=== PATIENT | female | born 1945 | race Two or more races ===

== ENCOUNTER 2025-08-30 21:09 | Outpatient (BNV) | payer MEDICARE, MEDICAID, SELFPAY | END 2025-09-05 23:05 | PROVIDERS: Admitting Provider Social Worker; Visit Provider Internal Medicine Cardiovascular Disease | DX: R94.31 Abnormal electrocardiogram [ECG] [EKG] (principal); R07.9 Chest pain, unspecified | CPT/HCPCS: 93010 ==

== ENCOUNTER 2025-08-30 21:09 | Inpatient (IN) | payer MEDICARE, MEDICAID, SELFPAY ==
--- OUTSIDE RECORDS SUMMARY | 2025-08-30 21:12 | XMS_ITS | Clinical Summary ---
Author Organization [facility] Address [address] [place] [address] Care Team Providers Care Liquid Chlorine Operator Name Role Phone Sally Diaz REGULATORY AFFAIRS DIRECTOR Unavailable [phone] Norma Marcus MD Primary Care Provid er Allergies Active Allergy Reactions Criticality Noted Date Comments Iodinated Contrast Media Other (See Comments) 0 07/03/2018 Medications * This document contains information received from the source organization and may not represent a complete record from that organization. anastrozole (ARIMIDEX) 1 mg tablet Take 1 mg by mouth daily. Active enalapril (VASOTEC) 10 MG tablet Take 10 mg by mouth daily. Active furosemide (LASIX) 20 MG tablet Take 20 mg by mouth every morning & every evening. Active levothyroxine (SYNTHROID, LEVOXYL) 50 MCG tablet Take 50 mcg by mouth every morning. Active cyclosporine (RESTASIS OPHT) Apply 1 drop to eye every morning & every evening. Active risperiDONE (RisperDAL) 1 MG tablet Take 1 mg by mouth every morning & every evening. Active cholecalciferol , vitamin D3, (VITAMIN D3) 2,000 unit cap Take by mouth. Active clonazePAM (KlonoPIN) 0.5 MG tablet Take 1 tablet (0.5 mg total) by mouth every morning & every evening. Active multivitamin per tablet Take 1 tablet by mouth daily. Active diphenhydrAMINE (BENADRYL) 50 MG capsule TAKE ONE CAPSULE BY MOUTH 2 HOURS PRIOR TO EXAM Active fluticasone propionate (FLONASE) 50 mcg/actuation nasal spray INSTILL 2 SPRAYS IN EACH NOSTRIL DAILY Active meclizine (ANTIVERT) 12.5 mg tablet TOME DOS TABLETAS BETTINA VECES AL D?A Active PARoxetine (PAXIL) 10 MG tablet Take 1 tablet (10 mg total) by mouth at bedtime. Active peg 400-hypromellos e-glycerin (ARTIFICIAL TEARS) 1-0.2-0.2 % ophthalmic solution INSTILL 1 DROP INTO BOTH EYES EVERY 4 HOURS Active Active Problems Problem Noted Date Diagnosed Date Dizziness 01/04/2020 Edema of larynx 01/04/2020 Gastroesophageal reflux disease without esophagi tis 01/04/2020 Sensorineural hearing loss (SNHL) of both ears 0 01/04/2020 Type 2 diabetes mellitus without complication Immunizations Immunization Administration Dates Next Due Zoster Vaccine Recombinant (Shingrix) 09/11/2018 Social History Tobacco Use Types Packs/Day Years Used Date Smoking Tobacco: Every Day Comments Unknown Sex and Gender Information Value Date Recorded Sex Assigned at Female 11/22/2024 11:28 AM EST Legal Sex Female 6:03 AM EST Gender Identity Female 11/22/2024 11:28 AM EST Sexual Orientation Not on file Last Filed Vital Signs Vital Sign Reading Time Taken Comments Blood Pressure 132/64 07/08/2018 10:29 AM EDT Pulse 74 07/09/2019 9:44 AM EDT Temperature 36.8 C (98.2 F) 07/09/2019 9:44 AM EDT Respiratory Rate 16 07/09/2019 9:44 AM EDT Oxygen Saturation 98% 07/09/2019 9:44 AM EDT Inhaled Oxygen Concentration - - Weight 60.5 kg (133 lb 6.4 oz) 07/09/2019 9:44 A M EDT Height - - Body Mass Index - - Plan of Treatment Health Maintenance Due Date Last Done Comments Blood Pressure 1945 Hemoglobin A1c 1946 Lipid Panel 1945 Urine Microalbumin 1946 Depression Screening 1950 COVID-19 Vaccine (#1) 1951 Diabetic Eye Exam 1964 Hepatitis C Screening 1964 DTaP,Tdap,and Td Vaccines (1 - Tdap) 1965 Pneumococcal Vaccine: 50+ Years (1 of 2 - PCV) 1965 Medicare Initial AWV [id number] 04/24/2008 Osteoporosis Screening 2011 Zoster Vaccine (2 of 2) 11/06/2018 09/11/2018 Influenza Vaccine (#1) 2025 Breast Cancer Screening Discontinued 01/23/20, 01/17/2022 Meningococcal B Vaccines Aged Out No longer eligible based on patient's age to complete this topic Meningococcal Vaccines Aged Out No lo nger eligible based on patient's age to complete this topic Procedures Procedure Name Priority Date/Time Associated Diagnosis Comments MAMMO SCREENING TOMOSYNTHESIS BILATERAL Routine 01/22/2023 12:00 AM EST from Last 3 Months or Most Recently Relevant to Health Maintenance Results * Mammo Screening Tomosynthesis Bilateral (01/22/2023 12:00 AM EST) Anatomical Region Laterality Modality Breast Bilateral Mammography 01/22/2023 01/22/2023 Narrative 01/22/2023 9:54 AM EST [facility] Phys: NORMA MARCUS MD [address] [place] [address] : 1945 Age: 78 Sex: [place] [address] Acct: [id number] Loc: [facility] T[facility]: Exam Date: 01/22/2023 Status: [facility] Unit No: [id number] [facility] Reason For Exam: ROUTINE SCREENING [facility] Ultrasound Exams: [id number] [facility]-MAMM/MAMM SCREENING 2D/3D REASON FOR EXAM: screening, asymptomatic. PATIENT HISTORY: Patient is postmenopausal, has history of other cancer, and is nulliparous. No known family history of cancer. Reductions of both breasts, November 25, 2008. Last mammogram was performed 1 year ago. RISK VALUE (s): Tyrer-Cuzick 10 Year: 4.3%, Tyrer-Cuzick Lifetime: 4.3%, Myriad Table: 1.5%, LULU 5 Year: 2.2%, NCI Lifetime: 4.4% PROCEDURE: Screening Aakash Mammogram: January 22, 2023 - Exam #: [id number] 2D/3D Procedure 3D Bilateral CC and MLO view(s) were taken. 2D Bilateral CC and MLO view(s) were taken. Technologist: ARMIDA Schneider Prior study comparison: January 17, 2022, bilateral screening aakash mammogram performed at [facility]. January 16, 2021, bilateral screening aakash mammogram performed at [facility]. There are scattered areas of fibroglandular density. A small cluster of linear calcifications within the retroareolar region of the right breast are unchanged. There is a smoothly marginated subcutaneous nodule within the retroareolar region of the left breast without significant change. There is no dominant mass or suspicious clustered microcalcifications. ACR BI-RADS Assessments: BI-RADS Category 1 (Negative) RECOMMENDATION: Routine screening mammogram in 1 year. A letter will be sent to the patient stating this recommendation. PAGE 1 Signed Report (CONTINUED) DIAGNOSTIC IMAGING [facility] Phys: NORMA MARCUS MD [address] [place] [address] : 1945 Age: 78 Sex: [place] [address] Acct: [id number] Loc: [facility] T[facility]: Exam Date: 01/22/2023 Status: [facility] Unit No: [id number] [facility] Reason For Exam: [facility] Ultrasound Exams: [id number] [facility]-M[facility]/MAMM SCREENING 2D/3D Continued This patient's information was entered into a reminder system with a target due date for the next mammogram. Electronically Signed: 01/23/2023 1006 Reported By: SCAR SWENSON MD CC: Technologist: KIMBER HUNG Taken Date/Time: 01/22/2023 (0954) Transcribed Date/Time: 01/23/2023 (1014) Websphere Consultant: SASHA Printed Date/Time: 05/14/2024 (4971) PAGE 2 Signed Report Procedure Note Scar Swenson MD - 09/28/2024 DIAGNOSTIC IMAGING REPORT [facility] Phys: NORMA MARCUS MD [address] [place] [address] : 1945 Age: 78 Sex:[place] [address] Acct: [id number] Loc: [facility]: Exam Date: 01/22/2023 Status: [facility] Unit No: [id number] [facility] Reason For Exam: ROUTINE SCREENING [facility] Ultrasound Exams: [id number] [facility]-MAMM/MAMM SCREENING 2D/3D REASON FOR EXAM: screening, asymptomatic. PATIENT HISTORY: Patient is postmenopausal, has history of other cancer, and is nulliparous. No known family history of cancer. Reductions of both breasts, November 25, 2008. Last mammogram was performed 1 year ago. RISK VALUE (s): Tyrer-Cuzick 10 Year: 4.3%, Tyrer-Cuzick Lifetime: 4.3%, Myriad Table: 1.5%, LULU 5 Year: 2.2%, NCI Lifetime: 4.4% PROCEDURE: Screening Aakash Mammogram: January 22, 2023 - Exam #: [id number] 2D/3D Procedure 3D Bilateral CC and MLO view(s) were taken. 2D Bilateral CC and MLO view(s) were taken. Technologist: ARMIDA Schneider Prior study comparison: January 17, 2022, bilateral screening aakash mammogram performed at [facility]. January 16, 2021, bilateral screening aakash mammogram performed at [facility]. There are scattered areas of fibroglandular density. A small cluster of linear calcifications within the retroareolar region of the right breast are unchanged. There is a smoothly marginated subcutaneous nodule within the retroareolar region of the left breast without significant change. There is no dominant mass or suspicious clustered microcalcifications. ACR BI-RADS Assessments: BI-RADS Category 1 (Negative) RECOMMENDATION: Routine screening mammogram in 1 year. A letter will be sent to the patient stating this recommendation. PAGE 1 Signed Report (CONTINUED) DIAGNOSTIC IMAGING REPORT [facility]: [facility] Phys: NORMA MARCUS MD [address] [place] [address] : 1945 Age: 78 Sex:[place] [address] Acct: [id number] Loc: [facility] TEL: Exam Date: 01/22/2023 Status: [facility] Unit No: [id number] [facility] Reason For Exam: ROUTINE SCREENING [facility] Ultrasound Exams: [id number] [facility]-MAMM/MAMM SCREENING 2D/3D Continued This patient's information was entered into a reminder system with a target due date for the next mammogram. 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
--- OUTSIDE RECORDS SUMMARY | 2025-08-30 21:12 | XMS_ITS | Patient Health Record ---
Author Organization [facility] Address [address] [address] Care Team Providers Care Asphalt Paving Machine Operator Name Role Phone Lidia PARKER, Nicole Primary Care Provide Marco De La Rosa Unavailable [phone] Allergies Allergen (clinical drug ingredient) Drug/Non Drug Allergy documented on EMR Reaction Allergy Type Onset Date Status IVP Dye Unknown Drug Allergy Active Reason For Referral No Information Medications Medication SIG (Take, Route, Frequency, Duration) Notes Start Date End Date Status Enalapril Maleate 10 MG 1 tablet Orally Once a day Active RisperDAL 2 MG 1 tablet Orally Once a day Active Levothyroxine Sodium 50 MCG 1 tablet on an empty stomach in the morning Orally Once a day Active Arimidex 1 MG 1 tablet Orally Once a day Active Furosemide 20 MG 1 tablet Orally Once a day Active Medical Compression Stockings - Active Vitamin D (Cholecalciferol) 1000 UNIT 1 capsule Orally Once a day Active Flonase 50 MCG/ACT 1 spray in each nost ril Nasally Once a day Active clonazePAM 0.5 MG 1 tablet at bedtime Orally Once a day Active Social History Tobacco Use: Social History Observation Description Date Details (start date - stop date) Never Smoker NA - NA Tobacco Use Question Answer Notes Do you smoke? 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 Edema; lower extremities 2. Diabetes Mellitus 3. Uterine Cancer; s/p radiation treatme nt 2010 4. Hypetension 5. Hypercholesterolemia 6. Hypothyroidism 7. Iron Deficiency 8. Cholelithiasis 9. Cellulitis; right lower leg 10. Bunion; right foot 11. Glaucoma; s/p surgery 12. Carpal Tunnel; s/p bilateral surgery 13. Non Smoker
--- OUTSIDE RECORDS SUMMARY | 2025-08-30 21:12 | XMS_ITS | Encounter Summary ---
Author Organization [facility] Address [address] [place] [address] Care Team Providers Care Application Packager Name Role Phone Carlos Nicole Primary Care Provider [phone] Sally Diaz PACKAGE CHECKER Unavailable [phone] Norma Cornejo MD Primary Care Provid er Reason for Visit * Reason Onset Date Comments No Show 07/11/2020 Encounter Details Date Type Department Care Team (Late st Contact Info) Description 07/11/2020 Telephone [place] [facility] [address] [place] [address] [phone] Sally Diaz, GAYLE [address] [place] [address] No Show Social History Tobacco Use Types Packs/Day Years Used Date Smoking Tobacco: Every Day Comments Unknown Sex and Gender Information Value Date Recorded Sex Assigned at Female 11/22/2024 11:28 AM EST Legal Sex Female 6:03 AM EST Gender Identity Female 11/22/2024 11:28 AM EST Sexual Orientation Not on file documented as of this encounter Miscellaneous Notes * Telephone Encounter - Imani Anderson - 08/30/2020 3:51 PM EDT Tried calling patient, could not leave a message. Will send letter. * Telephone Encounter - Imani Anderson - 07/26/2020 8:53 AM EDT Left another messsage on patients voice mail to call me back to schedule appt. * Telephone Encounter - Imani Anderson - 07/13/2020 10:06 AM EDT Left a message on patients voice mail to call me back to reschedule. * Telephone Encounter - Jacqueline Clark RN - 07/11/2020 11:47 AM EDT Imani, could you call her to reschedule? Thanks. * Telephone Encounter - Bronwyn Perez - 07/11/2020 11:28 AM EDT Patient no show, please call to reschedule. documented in this encounter Plan of Treatment Not on file documented as of this encounter Visit Diagnoses Not on filedocumented in this encounter Care Teams Application Packager Relationship Specialty Start Date End Date Nicole Gonzalez [address] [place] [address] PCP - General 12/30/17 01/21/23 Norma Cornejo MD [address] [place] [address] PCP - General 01/22/23 Sally Diaz NP [address] [place] [address] Nurse Practitioner Nurse Practitioner 07/08/18 documented as of this encounter
--- OUTSIDE RECORDS SUMMARY | 2025-08-30 21:12 | XMS_ITS | Clinical Summary ---
Author Organization [facility] Address [address] [place] [address] Phone Care Team Providers Care Automatic Fabric Cutter Name Role Phone Nicole Gonzalez MD Primary Care Provider [phone] Social History Tobacco Use Types Packs/Day Years Used Date Smoking Tobacco: Former Education Answer Date Recorded Are you interested in more education? Not on yesy e 03/21/2023 Are you concerned about learning? Not on file 03/21/2023 No 03/21/2023 No 03/21/2023 Digital Access Answer Date Recorded No 04/21/2023 No 04/21/2023 No 04/21/2023 Reliable internet access at home? Not on file 04/21/2023 Device with a working camera? Not on file Comments Unknown Sex and Gender Information Value Date Recorded Sex Assigned at Not on file Legal Sex Female 12:53 PM EDT Gender Identity Not on file Sexual Orientation Not on file Plan of Treatment Not on file Medical Devices Not on file Insurance [place] [id number] MEDICARE PART A [place] [address] MED[place] [address] MEDICARE PART [place] PART A & B [facility] [place] A [place] [id number] Care Teams Automatic Fabric Cutter Relationship Specialty Start Date End Date Nicole Gonzalez MD [address] [place] [address] [email or web address] PCP - General Family Medicine 05/29/16 Additional Source Comments The information contained in this document represents components of the legal health record. It is not the complete legal health record.[facility]
[2025-08-30 21:25] VITALS: BMI 30.8
[2025-08-30 23:59] VITALS: BP 125/61; PULSE 67; RESP 16; TEMP 36.4; O2SAT 96
[2025-08-31] VITALS: BMI 26.3
--- NOTE | 2025-08-31 04:30 | PC.ADMIT ---
Chasity is a 80 year old female admitted to [facility] from [facility] who presented from a Dementia memory care unit DT increased agitation and delirium. She arrived on the unit at 2130, skin/contraband search completed by 2 staff, skin intact with noted multiple upper extremity bruises, 2+ edema to bilateral lower extremities, incontinent care provided, noted with external hemorrhoids, gait unsteady. Chasity presented as alert, confused, impulsive, exit seeking, difficult to redirect, understood basic Dominican to make needs known. Medical DX include: HTN, hyperlipidemia, hypothyroidism, uterine carcinoma post hysterectomy. Dr. Machado completed admission, meds given for increased agitation whole in applesauce without problems, placed on 1:1 for safety while awake and 5 min observation while asleep. Hospitalist updated on admit. Chasity was calm and went to bed @ 2200 hrs. Plan of care goal: Psychiatric stabilization and return to Dementia Memory Care unit @ SN[facility].
[2025-08-31 08:00] VITALS: BP 138/63; PULSE 53; RESP 16; TEMP 36.4; O2SAT 96
[2025-08-31 08:01] LABS: Hemoglobin A1C 115.2829 umol/L; Total Hemoglobin (HGBA1C) 3021.9481 umol/L
--- NOTE | 2025-08-31 08:16 | HO.PM.IMCN ---
History of Present Illness Data of Consult Service Date: 08/31/25 Primary Care Provider: Unknown Physician HPI Reason for consult: Medical consult 80-year-old female brought in by ambulance from a [facility] facility where she has resided since February 2023. Patient has a past medical history of dementia, lymphedema, hypertension, hyperlipidemia, hypothyroidism, history of uterine carcinoma status post hysterectomy. And show presentation her lab work revealed no leukocytosis, stable H&H, platelet count within normal limits, electrolytes at baseline. And acute kidney injury with a creatinine of 1.0, liver function tests at baseline. Urine was negative for any infection. Nursing reports 2 loose stools today. On exam she is ambulatory, speaks very little. Cooperative with care. Ambulating with a steady gait. Presence of lymphedema on bilateral lower extremities. Review of Systems Review of Systems: Limited due to cognition PMFSH Social History Household Members: Other Household Members Other:: lives @ [facility] Housing: Assisted Living Facility Do you presently have visiting nurse or other home services: No (lives in a facility) Comment: Patient on one to one Patient Tobacco Use Status: Never used Tobacco Smoked in Last 30 Days: No e-Cigarette/Vaping Use: Never Used Patient Interested in Nicotine Replacement: No Patient Given Instructions on How to Stop Smoking: No Currently Displaying Signs/Symptoms of Drug Intoxication Withdrawal: No Have you been hit, kicked, punched, or otherwise hurt by someone within the past year? If so, by whom?: No Do you feel safe in your current relationship?: No Current Relationship Is there a partner from a previous relationship who is making you feel unsafe now?: No Are you made to feel afraid or neglected: No Advance Directives: No Advance Directives Information Provided: No Do you have thoughts of harming others: None Do you have a plan to hurt others: No Plan Recently lost weight without trying: No Eating poorly because of decreased appetite: No Nutrition Risks: No Nutritional Risk Patient : No : No Poor oral hygiene: No Meds Allergies Allergy/AdvReac Type Severity Reaction Status Date / Time No Known Allergies Allergy Verified 08/30/25 21:24 Active Medications: Current Medications Acetaminophen (Acetaminophen 325 Mg Tablet) 650 mg PO Q6H PRN PRN Reason: Headache/Pain, Scale 1-10 Al Hydroxide/Mg Hydroxide (Magnesium Hydrox/Alum Hydrox 30 Ml Oral.Susp) 30 ml PO Q6H PRN PRN Reason: Heartburn/Nausea Bisacodyl (Bisacodyl 10 Mg Supp.Rect) 10 mg [place] DAILY PRN PRN Reason: Congestion Brexpiprazole (Brexpiprazole 1 Mg Tablet) 1 mg PO DAILY [facility] [place] Enalapril Maleate (Enalapril Maleate 10 Mg Tablet) 10 mg PO DAILY [facility]; Protocol Ferrous Sulfate (Ferrous Sulfate 324 Mg Tablet.Dr) 324 mg PO DAILY [facility] [place] Hydroxyzine HCl (Hydroxyzine Hcl 25 Mg Tablet) 25 mg PO Q6H PRN PRN Reason: mild anxiety Levothyroxine Sodium (Levothyroxine Sodium 50 Mcg Tablet) 50 mcg PO DAILY@0600 [facility] [place] Last Admin: 08/31/25 06:37 Dose: 50 mcg Loratadine (Loratadine 10 Mg Tablet) 10 mg PO DAILY PRN PRN Reason: Allergic Symptoms Magnesium Hydroxide (Milk Of Magnesia 30 Ml Oral.Susp) 30 ml PO DAILY PRN PRN Reason: Constipation Nicotine (Nicotine 21 Mg Patch.Td24) 21 mg TRANSDERMA DAILY PRN PRN Reason: nicotine craving Nicotine Polacrilex (Nicotine Polacrilex 2 Mg Gum) 2 mg BUCCAL Q2H PRN PRN Reason: Nicotine Cravings Olanzapine (Olanzapine 5 Mg Tablet) 5 mg PO BID PRN PRN Reason: Agitation Olanzapine (Olanzapine 5 Mg Tablet) 5 mg PO BEDTIME [facility] Olanzapine (Olanzapine 5 Mg Tablet) 5 mg PO DAILY [facility] Sumatriptan Succinate (Sumatriptan Succinate 25 Mg Tablet) 25 mg PO BID PRN PRN Reason: Headache Trazodone HCl (Trazodone Hcl 50 Mg Tablet) 50 mg PO BEDTIME MRX1 PRN PRN Reason: Insomnia Vitamin D (Cholecalciferol (Vitamin D3) 25 Mcg Tablet) 25 mcg PO DAILY [facility] [place] Home Medications ?Medication ?Instructions ?Recorded ?Confirmed ?Last Taken ?Type bisacodyl 10 mg rectal suppository 10 mg [place] DAILY PRN Congestion 08/30/25 08/30/25 Unknown History brexpiprazole 1 mg tablet (Rexulti) 1 mg PO DAILY 08/30/25 08/30/25 Unknown History cholecalciferol (vitamin D3) 25 25 mcg PO DAILY 08/30/25 08/30/25 Unknown History mcg (1,000 unit) tablet (Vitamin D3) enalapril maleate 10 mg tablet 10 mg PO DAILY 08/30/25 08/30/25 Unknown History ferrous sulfate 325 mg (65 mg 325 mg PO DAILY 08/30/25 08/30/25 Unknown History iron) tablet (Iron (ferrous sulfate)) levothyroxine 50 mcg tablet 50 mcg PO DAILY 08/30/25 08/30/25 Unknown History loratadine 10 mg tablet 10 mg PO DAILY PRN Allergic 08/30/25 08/30/25 Unknown History Symptoms olanzapine 5 mg disintegrating 5 mg PO BEDTIME 08/30/25 08/30/25 Unknown History tablet olanzapine 5 mg disintegrating 5 mg PO BID PRN Agitation 08/30/25 08/30/25 Unknown History tablet olanzapine 5 mg disintegrating 5 mg PO DAILY 08/30/25 08/30/25 Unknown History tablet olanzapine 5 mg tablet 5 mg PO BEDTIME 08/30/25 08/30/25 Unknown History sumatriptan succinate 25 mg tablet 25 mg PO BID PRN Headache 08/30/25 08/30/25 Unknown History trazodone 50 mg tablet 50 mg PO BID PRN Agitation 08/30/25 08/30/25 Unknown History Physical Exam Vital Signs and Narrative: Vital Signs: Last Vital Signs Temp 97.6 F 08/30/25 23:59 Pulse 67 08/30/25 23:59 Resp 16 08/30/25 23:59 BP 125/61 08/30/25 23:59 Pulse Ox 96 08/30/25 23:59 O2 Del Method Room Air 08/30/25 23:59 BMI result Body Mass Index 26.3 CONST: Alert and oriented, in NAD. Well nourished HEENT: Normocephalic, atraumatic, MMM, Eyes clear, Neck supple RESP: Lungs clear, RRR even and regular HEART:,RRR, S1, S2. Positive lymphedema bilateral lower legs. GI:Abdomen Soft NT, ND. + BS times four :Deferred SKIN: Warm dry and intact, multiple bruising to bilateral upper arms. NEURO:CN II-XII Intact bilaterally, Sensation intact. Speech clear PSYCH: Normal affect Results Labs 08/31/25 07:19 Labs: Laboratory Results - last 24 hr 08/31/25 07:19 Estimat Average Glucose 114 Hemoglobin A1c % 5.6 Assessment and Plan (1) HTN (hypertension): Status: Acute Plan 80-year-old female admitted from receiving facility after she presented from an area fdc with altered mental status. She is admitted here for further care. Dementia with behavioral disturbance Treatment per psychiatric team Hypertension/HLD Continue enalapril Lipid panel within normal limits Not on a statin Hypothyroidism Continue Synthroid TSH within normal limits Iron deficiency anemia Continue iron Diarrhea Check stool studies and stool for C diff. Patient from fdc, possibly community-acquired Imodium x1 Thank you for allowing me to participate in the care of this patient. Will follow as needed, please notify medical provider with any changes in condition or concerns.
[2025-08-31 08:20] LABS: Alanine Aminotransferase 28 U/L (0-31); Albumin Level 3.5 g/dL (3.5-5.0); Alkaline Phosphatase 114 U/L (39-117); Anion Gap 13 (12-20); Aspartate Amino Transferase 42 U/L (5-31); Blood Urea Nitrogen 22 mg/dL (9-16); Calcium 9.2 mg/dL (8.4-10.2); Carbon Dioxide 22 mmol/L (22-29); Chloride 109 mmol/L (96-108); Cholesterol 175 mg/dL (<200); Creatinine Clr Calc Pharmacy 46.7; Estimated Glomerular Filt Rate > 60; HDL Cholesterol 70 mg/dL (>40); Potassium 4.3 mmol/L (3.3-5.1); Sodium 140 mmol/L (135-145); Total Protein 7.2 g/dL (6.5-8.0); Triglycerides 100 mg/dL (<150)
[2025-08-31 08:27] LABS: Free T4 (Free Thyroxine) 1.00 ng/dL (0.71-1.85); Thyroid Stimulating Hormone 3.15 uIU/mL (0.32-4.0)
[2025-08-31 08:44] LABS: Folate 12.9 ng/mL (> or = 4.0); Vitamin B12 703 pg/mL (200-900)
[2025-08-31] MEDS: Ferrous Sulfate 324 MG TABLET.DR PO (09:03)
--- NOTE | 2025-08-31 13:04 | P.HPPS_ITS ---
HPI Date of Service: 08/31/25 Chief Complaint: AMS Sources of Information: patient interviewed, chart reviewed and crisis/core team assessment reviewed HPI Subjective Notes: Section 12B Healthcare Proxy: Yes (invoked attempted to call daughter, unable to leave VM) Narrative: Ms. Angel is a 80 year-old woman with hx of advanced dementia who resides at memory care unit at [place]. Pt was sent to [facility] ED due to increase combative behaviors. In the ED pertinent labs completed include: CBC mostly unremarkable, no leukocytosis nor anemia. CMP without electrolyte abnormalities, BUN 29, Cr 1.01, creatinine clearance 56, Alk phos elevated at 139. UA not suggestive of UTI, unremarkable. Pt apparently was agitated at [facility], mostly at night. She was seen by their psychiatric team, risperidone was discontinued and pt was started on olanzapine and rexulti. On the unit, pt presents as cooperative and friendly. She is not oriented to situation, month, year nor place. She reports having a VILLAN[place]VA. She also reports her legs are swollen causing some difficulty walking. She also asks this typewriter assembly and parts inspector if she can leave now to go home. This typewriter assembly and parts inspector called daughter Martha Angel ([phone]) unable to speak with her nor leave a message. Past Psychiatric History: unknown Medical Evaluation Reviewed: Yes [facility] Family History: unknown Social History: Pt reports originally from [place]. She reports she has 5 children. Substance History: unknown Trauma History: unknown, none reported. Diagnostics Vital Signs (24Hr): Vital Signs - 24 hr 08/30/25 23:59 08/31/25 08:00 Temperature 97.6 F 97.5 F Pulse Rate 67 53 Respiratory Rate 16 16 Blood Pressure 125/61 138/63 Pulse Oximetry 96 96 Oxygen Delivery Method Room Air Room Air BMI result Body Mass Index 26.3 Labs 08/31/25 07:19 Labs: Laboratory Results - last 48 hr 08/31/25 07:19 Sodium 140 Potassium 4.3 Chloride 109 H Carbon Dioxide 22 Anion Gap 13 BUN 22 H Creatinine 0.90 Estim Creat Clear Calc 46.7 Estimated GFR > 60 Random Glucose 82 Estimat Average Glucose 114 Hemoglobin A1c % 5.6 Calcium 9.2 Total Bilirubin 0.4 AST 42 H ALT 28 Alkaline Phosphatase 114 Total Protein 7.2 Albumin 3.5 Triglycerides 100 Cholesterol 175 LDL Cholesterol, Calc 85 HDL Cholesterol 70 Vitamin B12 703 Folate 12.9 TSH 3.15 Free T4 1.00 Meds/Allergies Meds Home Medications ?Medication ?Instructions ?Recorded ?Confirmed ?Type bisacodyl 10 mg rectal suppository 10 mg [place] DAILY PRN Congestion 08/30/25 08/30/25 History brexpiprazole 1 mg tablet (Rexulti) 1 mg PO DAILY 06/1708/30/25 History cholecalciferol (vitamin D3) 25 25 mcg PO DAILY 08/30/25 History mcg (1,000 unit) tablet (Vitamin D3) enalapril maleate 10 mg tablet 10 mg PO DAILY 08/30/25 08/30/25 History ferrous sulfate 325 mg (65 mg 325 mg PO DAILY 08/30/25 08/30/25 History iron) tablet (Iron (ferrous sulfate)) levothyroxine 50 mcg tablet 50 mcg PO DAILY 08/30/25 1 History loratadine 10 mg tablet 10 mg PO DAILY PRN Allergic 08/30/25 08/30/25 History Symptoms olanzapine 5 mg disintegrating 5 mg PO BEDTIME 2 5 08/30/25 History tablet olanzapine 5 mg disintegrating 5 mg PO BID PRN Agitati on 08/30/25 08/30/25 History tablet olanzapine 5 mg disintegrating 5 mg PO DAILY 08/30/25 08/30/25 History tablet olanzapine 5 mg tablet 5 mg PO BEDTIME 08/30/2506/17 History sumatriptan succinate 25 mg tablet 25 mg PO BID PRN He adache 08/30/25 08/30/25 History trazodone 50 mg tablet 50 mg PO BID PRN Agitation 1 08/30/25 History Allergies Allergies Allergy/AdvReac Type Severity Reaction Status Date / Time No Known Allergies Allergy Verified 08/30/25 21:24 Mental Status Exam Mental Status Exam Narrative: Appearance: wearing hospital gown, fair hygiene, in NAD Behavior: cooperative and friendly Psychomotor: no agitation or retardation noted Speech: mostly clear, normal rate/rhythm/volume, spontaneous TP: linear TC: complaining of headache, wanting to go home Mood: good Affect: congruent SI: denies HI: none VH/AH: no overt signs Delusions: confabulation, no overt delusional content. Insight/judgment: impaired x 2 Memory/cog: alert, oriented only to self. Assessment & Plan Assessment & Plan (1) Major neurocognitive disorder due to another medical condition, with other behavioral or psychological disturbance: Status: Acute Code(s): F02.818 - Dementia in other diseases classified elsewhere, unspecified severity, with other behavioral disturbance Plan Mrs. Angel is a 80 year-old woman with hx of dementia who resides at [place], apparently she had been presenting as more agitated and combative. No acute medical findings. She was seen by psych and started on rexulti and olanzapine. PLAN 1. Admit to S1, Sect 12b. There's copy of HCP which it is invoked. She is also DNR/DNI. 2. continue current medications 3. obtain collateral information 4. aftercare planning. Patient educated on: diagnosis and medication risk/benefits Reason for continued inpatient stay Substantial Risk for: harm to others and inability to function Statement Statement: I have reviewed the history and physical and performed a pertinent examination on my patient. No changes have occurred unless specified. If the History and Physical was not performed prior to admission, the Hospitalist's service will be consulted for completing the admission physical. Time Spent With Patient Time: Total time managing care of this patient today ____ minutes.
[2025-08-31 20:00] VITALS: BP 129/59; PULSE 67; RESP 18; TEMP 36.3; O2SAT 96
[2025-09-01 08:00] VITALS: BP 135/64; PULSE 79; RESP 16; TEMP 36.8; O2SAT 95
[2025-09-01] MEDS: Ferrous Sulfate 324 MG TABLET.DR PO (08:49)
--- NOTE | 2025-09-01 10:06 | PC.NURSE ---
Patient reported 10/10 pain from heachache after taking Sumatriptan; vital signs stable. In addition patient has bilateral lower extremity edema with +1 pitting on the right and non-pitting on the left. All of the above reported to the provider.
[2025-09-01 13:41] VITALS: BMI 26.1
--- NOTE | 2025-09-01 14:09 | PC.NURSE ---
Spoke with RN from [facility], reported that the patient has not received her flu vaccine yet.
[2025-09-01] MEDS: Flu Vacc TS2025-26(6mo up)/PF 0.5 ML SYRINGE IM (14:34)
--- NOTE | 2025-09-01 17:33 | P.PNPSI_ITS ---
Subjective Subjective Date of Service: 09/01/25 Reason For Visit: AMS Subjective Notes: Conditional Voluntary Healthcare Proxy: Yes Interim History: Pt slept through the night. Pt presents as pleasant and cooperative. she reports headache, received sumatriptan. She also tells this policy writer they haven't come to pick me up! No aggression. taking medications. not oriented to place, month nor situation. Review of Systems Review of Systems Limited due to cognition Mental Status Exam Mental Status Exam Narrative: Appearance: wearing hospital gown, fair hygiene, in NAD Behavior: cooperative and friendly Psychomotor: no agitation or retardation noted Speech: mostly clear, normal rate/rhythm/volume, spontaneous TP: linear TC: complaining of headache, wanting to go home Mood: good Affect: congruent SI: denies HI: none VH/AH: no overt signs Delusions: confabulation, no overt delusional content. Insight/judgment: impaired x 2 Memory/cog: alert, oriented only to self. Diagnostics Vital Signs (24Hr): Vital Signs - 24 hr 08/31/25 20:00 09/01/25 08:00 Temperature 97.3 F 98.2 F Pulse Rate 67 79 Respiratory Rate 18 16 Blood Pressure 129/59 L 135/64 Pulse Oximetry 96 95 Oxygen Delivery Method Room Air Room Air BMI result Body Mass Index 26.1 Labs 08/31/25 07:19 Labs: Laboratory Results - last 48 hr 08/31/25 07:19 Sodium 140 Potassium 4.3 Chloride 109 H Carbon Dioxide 22 Anion Gap 13 BUN 22 H Creatinine 0.90 Estim Creat Clear Calc 46.7 Estimated GFR > 60 Random Glucose 82 Estimat Average Glucose 114 Hemoglobin A1c % 5.6 Calcium 9.2 Total Bilirubin 0.4 AST 42 H ALT 28 Alkaline Phosphatase 114 Total Protein 7.2 Albumin 3.5 Triglycerides 100 Cholesterol 175 LDL Cholesterol, Calc 85 HDL Cholesterol 70 Vitamin B12 703 Folate 12.9 TSH 3.15 Free T4 1.00 Medications Medications Current Medications Acetaminophen (Acetaminophen 325 Mg Tablet) 650 mg PO Q6H PRN PRN Reason: Headache/Pain, Scale 1-10 Last Admin: 09/01/25 12:47 Dose: 650 mg Al Hydroxide/Mg Hydroxide (Magnesium Hydrox/Alum Hydrox 30 Ml Oral.Susp) 30 ml PO Q6H PRN PRN Reason: Heartburn/Nausea Bisacodyl (Bisacodyl 10 Mg Supp.Rect) 10 mg [place] DAILY PRN PRN Reason: Congestion Brexpiprazole (Brexpiprazole 1 Mg Tablet) 1 mg PO DAILY [facility] Last Admin: 09/01/25 08:49 Dose: 1 mg Enalapril Maleate (Enalapril Maleate 10 Mg Tablet) 10 mg PO DAILY [facility]; Protocol Last Admin: 09/01/25 08:48 Dose: 10 mg Ferrous Sulfate (Ferrous Sulfate 324 Mg Tablet.Dr) 324 mg PO DAILY [facility] Last Admin: 09/01/25 08:49 Dose: 324 mg Hydroxyzine HCl (Hydroxyzine Hcl 25 Mg Tablet) 25 mg PO Q6H PRN PRN Reason: mild anxiety Last Admin: 08/31/25 14:37 Dose: 25 mg Levothyroxine Sodium (Levothyroxine Sodium 50 Mcg Tablet) 50 mcg PO DAILY@0600 [facility] Last Admin: 09/01/25 06:00 Dose: 50 mcg Loperamide HCl (Loperamide Hcl 2 Mg Capsule) 2 mg PO Q6H PRN PRN Reason: Loose Stool Loratadine (Loratadine 10 Mg Tablet) 10 mg PO DAILY PRN PRN Reason: Allergic Symptoms Magnesium Hydroxide (Milk Of Magnesia 30 Ml Oral.Susp) 30 ml PO DAILY PRN PRN Reason: Constipation Nicotine (Nicotine 21 Mg Patch.Td24) 21 mg TRANSDERMA DAILY PRN PRN Reason: nicotine craving Nicotine Polacrilex (Nicotine Polacrilex 2 Mg Gum) 2 mg BUCCAL Q2H PRN PRN Reason: Nicotine Cravings Olanzapine (Olanzapine 5 Mg Tablet) 5 mg PO BID PRN PRN Reason: Agitation Last Admin: 09/01/25 15:37 Dose: 5 mg Olanzapine (Olanzapine 5 Mg Tablet) 5 mg PO BEDTIME [facility] Last Admin: 08/31/25 20:48 Dose: 5 mg Olanzapine (Olanzapine 5 Mg Tablet) 5 mg PO DAILY [facility] Last Admin: 09/01/25 08:49 Dose: 5 mg Sumatriptan Succinate (Sumatriptan Succinate 25 Mg Tablet) 25 mg PO BID PRN PRN Reason: Headache Last Admin: 09/01/25 06:09 Dose: 25 mg Trazodone HCl (Trazodone Hcl 50 Mg Tablet) 50 mg PO BEDTIME MRX1 PRN PRN Reason: Insomnia Vitamin D (Cholecalciferol (Vitamin D3) 25 Mcg Tablet) 25 mcg PO DAILY [facility] Last Admin: 09/01/25 08:49 Dose: 25 mcg Allergies Allergies Allergy/AdvReac Type Severity Reaction Status Date / Time No Known Allergies Allergy Verified 08/30/25 21:24 Assessment & Plan Assessment & Plan (1) Major neurocognitive disorder due to another medical condition, with other behavioral or psychological disturbance: Status: Acute Code(s): F02.818 - Dementia in other diseases classified elsewhere, unspecified severity, with other behavioral disturbance Plan Mrs. Angel is a 80 year-old woman with hx of dementia who resides at [place], apparently she had been presenting as more agitated and combative. No acute medical findings. She was seen by psych and started on rexulti and olanzapine. PLAN 09/01 continue tx. no aggression. Reason for continued inpatient stay Substantial Risk for: inability to function Time Spent With Patient Time: Total time managing care of this patient today ____ minutes.
[2025-09-01 20:00] VITALS: BP 128/68; PULSE 75; RESP 16; TEMP 36.6; O2SAT 94
[2025-09-02 08:00] VITALS: BP 144/65; PULSE 82; RESP 14; TEMP 36.4; O2SAT 96
[2025-09-02] MEDS: Ferrous Sulfate 324 MG TABLET.DR PO (09:31)
--- NOTE | 2025-09-02 09:36 | HO.PSYCHPN ---
Subjective Subjective Date of Service: 09/02/25 Reason For Visit: AMS Subjective Notes: Conditional Voluntary Healthcare Proxy: Yes Interim History: Pt sleeping through the night. not oriented to place, month nor situation. Calmer in the AM, although reports physically not feeling well. She reports she has a migraine. She reports her legs hurt- has bilat edema-seen by hospitalist. getting more confused in the evening, suspicious about staff. worry her family did not come to pick her up. Review of Systems Review of Systems Limited due to cognition Mental Status Exam Mental Status Exam Narrative: Appearance: wearing hospital gown, fair hygiene, in NAD Behavior: cooperative and friendly Psychomotor: no agitation or retardation noted Speech: mostly clear, normal rate/rhythm/volume, spontaneous TP: linear TC: complaining of headache, wanting to go home Mood: good Affect: congruent SI: denies HI: none VH/AH: no overt signs Delusions: confabulation, no overt delusional content. Insight/judgment: impaired x 2 Memory/cog: alert, oriented only to self. Diagnostics Vital Signs (24Hr): Vital Signs - 24 hr 09/01/25 20:00 Temperature 98 F Pulse Rate 75 Respiratory Rate 16 Blood Pressure 128/68 Pulse Oximetry 94 Oxygen Delivery Method Room Air BMI result Body Mass Index 26.1 Labs 08/31/25 07:19 Medications Medications Current Medications Acetaminophen (Acetaminophen 325 Mg Tablet) 650 mg PO Q6H PRN PRN Reason: Headache/Pain, Scale 1-10 Last Admin: 09/01/25 23:13 Dose: 650 mg Al Hydroxide/Mg Hydroxide (Magnesium Hydrox/Alum Hydrox 30 Ml Oral.Susp) 30 ml PO Q6H PRN PRN Reason: Heartburn/Nausea Bisacodyl (Bisacodyl 10 Mg Supp.Rect) 10 mg [place] DAILY PRN PRN Reason: Congestion Brexpiprazole (Brexpiprazole 1 Mg Tablet) 1 mg PO DAILY [facility] Last Admin: 09/02/25 09:31 Dose: 1 mg Enalapril Maleate (Enalapril Maleate 10 Mg Tablet) 10 mg PO DAILY [facility]; Protocol Last Admin: 09/02/25 09:31 Dose: 10 mg Ferrous Sulfate (Ferrous Sulfate 324 Mg Tablet.) 324 mg PO DAILY [facility] Last Admin: 09/02/25 09:31 Dose: 324 mg Hydroxyzine HCl (Hydroxyzine Hcl 25 Mg Tablet) 25 mg PO Q6H PRN PRN Reason: mild anxiety Last Admin: 09/01/25 20:18 Dose: 25 mg Levothyroxine Sodium (Levothyroxine Sodium 50 Mcg Tablet) 50 mcg PO DAILY@0600 [facility] Last Admin: 09/02/25 06:15 Dose: 50 mcg Loperamide HCl (Loperamide Hcl 2 Mg Capsule) 2 mg PO Q6H PRN PRN Reason: Loose Stool Loratadine (Loratadine 10 Mg Tablet) 10 mg PO DAILY PRN PRN Reason: Allergic Symptoms Magnesium Hydroxide (Milk Of Magnesia 30 Ml Oral.Susp) 30 ml PO DAILY PRN PRN Reason: Constipation Nicotine (Nicotine 21 Mg Patch.Td24) 21 mg TRANSDERMA DAILY PRN PRN Reason: nicotine craving Nicotine Polacrilex (Nicotine Polacrilex 2 Mg Gum) 2 mg BUCCAL Q2H PRN PRN Reason: Nicotine Cravings Olanzapine (Olanzapine 5 Mg Tablet) 5 mg PO BID PRN PRN Reason: Agitation Last Admin: 09/01/25 15:37 Dose: 5 mg Olanzapine (Olanzapine 5 Mg Tablet) 5 mg PO BEDTIME [facility] Last Admin: 09/01/25 20:18 Dose: 5 mg Olanzapine (Olanzapine 5 Mg Tablet) 5 mg PO DAILY [facility] Last Admin: 09/02/25 09:32 Dose: 5 mg Sumatriptan Succinate (Sumatriptan Succinate 25 Mg Tablet) 25 mg PO BID PRN PRN Reason: Headache Last Admin: 09/02/25 00:05 Dose: 25 mg Trazodone HCl (Trazodone Hcl 50 Mg Tablet) 50 mg PO BEDTIME MRX1 PRN PRN Reason: Insomnia Last Admin: 09/01/25 23:13 Dose: 50 mg Vitamin D (Cholecalciferol (Vitamin D3) 25 Mcg Tablet) 25 mcg PO DAILY [facility] Last Admin: 09/02/25 09:32 Dose: 25 mcg Allergies Allergies Allergy/AdvReac Type Severity Reaction Status Date / Time No Known Allergies Allergy Verified 08/30/25 21:24 Assessment & Plan Assessment & Plan (1) Major neurocognitive disorder due to another medical condition, with other behavioral or psychological disturbance: Status: Acute Code(s): F02.818 - Dementia in other diseases classified elsewhere, unspecified severity, with other behavioral disturbance Plan Mrs. Angel is a 80 year-old woman with hx of dementia who resides at [place], apparently she had been presenting as more agitated and combative. No acute medical findings. She was seen by psych and started on rexulti and olanzapine. PLAN 09/01 continue tx. no aggression. 09/02 continue tx. Reason for continued inpatient stay Substantial Risk for: inability to function Time Spent With Patient Time: Total time managing care of this patient today ____ minutes.
[2025-09-02 20:00] VITALS: BP 133/60; PULSE 73; RESP 16; TEMP 36.4; O2SAT 98
[2025-09-03 09:22] VITALS: BP 123/58; PULSE 72; RESP 14; TEMP 36.3; O2SAT 95
[2025-09-03] MEDS: Ferrous Sulfate 324 MG TABLET.DR PO (09:32)
--- NOTE | 2025-09-03 13:17 | P.PNPSI_ITS ---
Subjective Subjective Date of Service: 09/03/25 Reason For Visit: AMS Subjective Notes: Conditional Voluntary Interim History: Patient was seen and discussed in rounds today. Records and plans were reviewed. She continues to be on 1-1. Her legs are quite swollen with pitting edema especially on the left side. I will put her on Lasix and some stockings. Eating adequately. No other changes were made Review of Systems Review of Systems Edema Yes all other systems are reviewed and are negative Mental Status Exam Mental Status Exam Narrative: In today's visit she was seen with an language interpreter. She is alert, pleasant and interactive. Normal speech. Moderate to good eye contact. No signs of psychosis. No SI. No AVH. Judgment could not be assessed Diagnostics Vital Signs (24Hr): Vital Signs - 24 hr 09/02/25 20:00 09/03/25 09:22 Temperature 97.6 F 97.3 F Pulse Rate 73 72 Respiratory Rate 16 14 Blood Pressure 133/60 123/58 L Pulse Oximetry 98 95 Oxygen Delivery Method Room Air Room Air BMI result Body Mass Index 26.1 Labs 08/31/25 07:19 Medications Medications Current Medications Acetaminophen (Acetaminophen 325 Mg Tablet) 650 mg PO Q6H PRN PRN Reason: Headache/Pain, Scale 1-10 Last Admin: 09/03/25 09:32 Dose: 650 mg Al Hydroxide/Mg Hydroxide (Magnesium Hydrox/Alum Hydrox 30 Ml Oral.Susp) 30 ml PO Q6H PRN PRN Reason: Heartburn/Nausea Bisacodyl (Bisacodyl 10 Mg Supp.Rect) 10 mg [place] DAILY PRN PRN Reason: Constipation Brexpiprazole (Brexpiprazole 1 Mg Tablet) 1 mg PO DAILY [facility] Last Admin: 09/03/25 09:32 Dose: 1 mg Enalapril Maleate (Enalapril Maleate 10 Mg Tablet) 10 mg PO DAILY [facility]; Protocol Last Admin: 09/03/25 09:33 Dose: 10 mg Ferrous Sulfate (Ferrous Sulfate 324 Mg Tablet.) 324 mg PO DAILY [facility] Last Admin: 09/03/25 09:32 Dose: 324 mg Hydroxyzine HCl (Hydroxyzine Hcl 25 Mg Tablet) 25 mg PO Q6H PRN PRN Reason: mild anxiety Last Admin: 09/02/25 15:46 Dose: 25 mg Levothyroxine Sodium (Levothyroxine Sodium 50 Mcg Tablet) 50 mcg PO DAILY@0600 [facility] Last Admin: 09/03/25 06:22 Dose: 50 mcg Loperamide HCl (Loperamide Hcl 2 Mg Capsule) 2 mg PO Q6H PRN PRN Reason: Loose Stool Loratadine (Loratadine 10 Mg Tablet) 10 mg PO DAILY PRN PRN Reason: Allergic Symptoms Magnesium Hydroxide (Milk Of Magnesia 30 Ml Oral.Susp) 30 ml PO DAILY PRN PRN Reason: Constipation Nicotine (Nicotine 21 Mg Patch.Td24) 21 mg TRANSDER[place] DAILY PRN PRN Reason: nicotine craving Olanzapine (Olanzapine 5 Mg Tablet) 5 mg PO BID PRN PRN Reason: Agitation Last Admin: 09/02/25 15:46 Dose: 5 mg Olanzapine (Olanzapine 5 Mg Tablet) 5 mg PO BEDTIME [facility] Last Admin: 09/02/25 21:10 Dose: 5 mg Olanzapine (Olanzapine 5 Mg Tablet) 5 mg PO DAILY [facility] Last Admin: 09/03/25 09:32 Dose: 5 mg Sumatriptan Succinate (Sumatriptan Succinate 25 Mg Tablet) 25 mg PO BID PRN PRN Reason: Headache Last Admin: 09/02/25 16:29 Dose: 25 mg Trazodone HCl (Trazodone Hcl 50 Mg Tablet) 50 mg PO BEDTIME MRX1 PRN PRN Reason: Insomnia Last Admin: 09/02/25 21:09 Dose: 50 mg Vitamin D (Cholecalciferol (Vitamin D3) 25 Mcg Tablet) 25 mcg PO DAILY [facility] Last Admin: 09/03/25 09:32 Dose: 25 mcg Allergies Allergies Allergy/AdvReac Type Severity Reaction Status Date / Time No Known Allergies Allergy Verified 08/30/25 21:24 Assessment & Plan Assessment & Plan (1) Major neurocognitive disorder due to another medical condition, with other behavioral or psychological disturbance: Status: Acute Code(s): F02.818 - Dementia in other diseases classified elsewhere, unspecified severity, with other behavioral disturbance Plan Mrs. Angel is a 80 year-old woman with hx of dementia who resides at [place], apparently she had been presenting as more agitated and combative. No acute medical findings. She was seen by psych and started on rexulti and olanzapine. PLAN 09/01 continue tx. no aggression. 09/02 continue tx. 09/03: Continue current regimen and plans Patient educated on: medication risk/benefits Reason for continued inpatient stay Substantial Risk for: med/psych decompensation Time Spent With Patient Time: Total time managing care of this patient today ____ minutes.
[2025-09-03 14:23] VITALS: BP 140/60
[2025-09-03 20:00] VITALS: BP 138/70; PULSE 77; RESP 16; TEMP 36.3; O2SAT 97
[2025-09-04 09:03] VITALS: BP 125/58; PULSE 73; RESP 14; TEMP 36.8; O2SAT 91
[2025-09-04] MEDS: Ferrous Sulfate 324 MG TABLET.DR PO (09:08)
--- NOTE | 2025-09-04 12:38 | P.PNPSI_ITS ---
Subjective Subjective Date of Service: 09/04/25 Reason For Visit: AMS Subjective Notes: Conditional Voluntary Interim History: Patient was seen and discussed in rounds today. Records and plans were reviewed. She is very preoccupied about going home and has been calling her sister [place] about going home. She was dysregulated yesterday, confused. The Zyprexa p.r.n. has been helpful. No changes were made today Review of Systems Review of Systems Yes Unobtainable due to mental status Mental Status Exam Mental Status Exam Narrative: In today's visit she was seen with an manager neonatal. She is alert, pleasant and interactive. Normal speech. Moderate to good eye contact. No signs of psychosis. No SI. No AVH. Judgment could not be assessed Diagnostics Vital Signs (24Hr): Vital Signs - 24 hr 09/03/25 14:23 09/03/25 20:00 09/04/25 09:03 Temperature 97.4 F 98.2 F Pulse Rate 77 73 Respiratory Rate 16 14 Blood Pressure 140/60 H 138/70 125/58 L Pulse Oximetry 97 91 L Oxygen Delivery Method Room Air Room Air BMI result Body Mass Index 26.1 Labs 08/31/25 07:19 Medications Medications Current Medications Acetaminophen (Acetaminophen 325 Mg Tablet) 650 mg PO Q6H PRN PRN Reason: Headache/Pain, Scale 1-10 Last Admin: 09/04/25 05:24 Dose: 650 mg Al Hydroxide/Mg Hydroxide (Magnesium Hydrox/Alum Hydrox 30 Ml Oral.Susp) 30 ml PO Q6H PRN PRN Reason: Heartburn/Nausea Bisacodyl (Bisacodyl 10 Mg Supp.Rect) 10 mg [place] DAILY PRN PRN Reason: Constipation Brexpiprazole (Brexpiprazole 1 Mg Tablet) 1 mg PO DAILY [facility] Last Admin: 09/04/25 09:08 Dose: 1 mg Enalapril Maleate (Enalapril Maleate 10 Mg Tablet) 10 mg PO DAILY [facility]; Protocol Last Admin: 09/04/25 09:08 Dose: 10 mg Ferrous Sulfate (Ferrous Sulfate 324 Mg Tablet.) 324 mg PO DAILY [facility] Last Admin: 09/04/25 09:08 Dose: 324 mg Furosemide (Furosemide 20 Mg Tablet) 20 mg PO DAILY [facility]; Protocol Last Admin: 09/04/25 09:08 Dose: 20 mg Hydroxyzine HCl (Hydroxyzine Hcl 25 Mg Tablet) 25 mg PO Q6H PRN PRN Reason: mild anxiety Last Admin: 09/04/25 09:08 Dose: 25 mg Levothyroxine Sodium (Levothyroxine Sodium 50 Mcg Tablet) 50 mcg PO DAILY@0600 [facility] Last Admin: 09/04/25 06:11 Dose: 50 mcg Loperamide HCl (Loperamide Hcl 2 Mg Capsule) 2 mg PO Q6H PRN PRN Reason: Loose Stool Loratadine (Loratadine 10 Mg Tablet) 10 mg PO DAILY PRN PRN Reason: Allergic Symptoms Magnesium Hydroxide (Milk Of Magnesia 30 Ml Oral.Susp) 30 ml PO DAILY PRN PRN Reason: Constipation Nicotine (Nicotine 21 Mg Patch.Td24) 21 mg TRANSDERMA DAILY PRN PRN Reason: nicotine craving Olanzapine (Olanzapine 5 Mg Tablet) 5 mg PO BID PRN PRN Reason: Agitation Last Admin: 09/03/25 14:23 Dose: 5 mg Olanzapine (Olanzapine 5 Mg Tablet) 5 mg PO BEDTIME [facility] Last Admin: 09/03/25 21:52 Dose: 5 mg Olanzapine (Olanzapine 5 Mg Tablet) 5 mg PO DAILY [facility] Last Admin: 09/04/25 09:08 Dose: 5 mg Sumatriptan Succinate (Sumatriptan Succinate 25 Mg Tablet) 25 mg PO BID PRN PRN Reason: Headache Last Admin: 09/03/25 21:52 Dose: 25 mg Trazodone HCl (Trazodone Hcl 50 Mg Tablet) 50 mg PO BEDTIME MRX1 PRN PRN Reason: Insomnia Last Admin: 09/03/25 21:52 Dose: 50 mg Vitamin D (Cholecalciferol (Vitamin D3) 25 Mcg Tablet) 25 mcg PO DAILY [facility] Last Admin: 09/04/25 09:08 Dose: 25 mcg Allergies Allergies Allergy/AdvReac Type Severity Reaction Status Date / Time No Known Allergies Allergy Verified 08/30/25 21:24 Assessment & Plan Assessment & Plan (1) Major neurocognitive disorder due to another medical condition, with other behavioral or psychological disturbance: Status: Acute Code(s): F02.818 - Dementia in other diseases classified elsewhere, unspecified severity, with other behavioral disturbance Plan Mrs. Angel is a 80 year-old woman with hx of dementia who resides at [place], apparently she had been presenting as more agitated and combative. No acute medical findings. She was seen by psych and started on rexulti and olanzapine. PLAN 09/01 continue tx. no aggression. 09/02 continue tx. 09/03: Continue current regimen and plans 09/04: Continue current regimen and plans Reason for continued inpatient stay Substantial Risk for: inability to function and med/psych decompensation Time Spent With Patient Time: Total time managing care of this patient today ____ minutes.
[2025-09-04 20:00] VITALS: BP 128/60; PULSE 70; RESP 18; TEMP 36.8; O2SAT 95
[2025-09-04] MEDS: Magnesium Hydrox/Alum Hydrox 30 ML ORAL.SUSP PO (21:22)
--- NOTE | 2025-09-05 | ECG_ITS ---
Test Reason : chest pain Blood Pressure : */* mmHG Vent. Rate : 78 BPM Atrial Rate : 78 BPM P-R Int : 136 ms QRS Dur : 70 ms QT Int : 352 ms P-R-T Axes : 36 -7 52 degrees QTcB Int : 401 ms Normal sinus rhythm Minimal voltage criteria for LVH, may be normal variant ( R in aVL ) Nonspecific T wave abnormality Abnormal ECG No previous ECGs available Referred By: Sammy Cleaning Electronically Signed By: Pankaj Francois
[2025-09-05 00:19] LABS: Vitamin D 25-OH, D2 <4 ng/mL; Vitamin D 25-OH, D3 33 ng/mL; Vitamin D 25-OH, Total 33 ng/mL (30-100)
[2025-09-05 08:00] VITALS: BP 107/55; PULSE 74; RESP 18; TEMP 36.6; O2SAT 96
[2025-09-05 08:48] VITALS: BP 107/55
[2025-09-05 08:49] VITALS: BP 107/55
[2025-09-05] MEDS: Ferrous Sulfate 324 MG TABLET.DR PO (08:49)
--- NOTE | 2025-09-05 10:24 | HO.PSYCHPN ---
Subjective Subjective Date of Service: 09/05/25 Reason For Visit: AMS Subjective Notes: Conditional Voluntary Interim History: Patient was seen and discussed in rounds today. Records and plans were reviewed. She is doing better and is more settled. Medication compliant. No complaints or side effects. No behavioral issues. Not calling her sister's much. No SI. No changes Review of Systems Review of Systems Yes all other systems are reviewed and are negative Mental Status Exam Mental Status Exam Narrative: In today's visit she was seen with an legal referee. She is alert, pleasant and interactive. Normal speech. Moderate to good eye contact. No signs of psychosis. No SI. No AVH. Judgment could not be assessed Diagnostics Vital Signs (24Hr): Vital Signs - 24 hr 09/04/25 20:00 09/05/25 08:48 09/05/25 08:49 Temperature 98.2 F Pulse Rate 70 Respiratory Rate 18 Blood Pressure 128/60 107/55 L 107/55 L Pulse Oximetry 95 Oxygen Delivery Method Room Air BMI result Body Mass Index 26.1 Labs 08/31/25 07:19 Labs: Laboratory Results - last 48 hr 08/31/25 07:19 25-OH Vitamin D Total 33 25-Hydroxy Vitamin D2 <4 25-Hydroxy Vitamin D3 33 Medications Medications Current Medications Acetaminophen (Acetaminophen 325 Mg Tablet) 650 mg PO Q6H PRN PRN Reason: Headache/Pain, Scale 1-10 Last Admin: 09/04/25 21:24 Dose: 650 mg Al Hydroxide/Mg Hydroxide (Magnesium Hydrox/Alum Hydrox 30 Ml Oral.Susp) 30 ml PO Q6H PRN PRN Reason: Heartburn/Nausea Last Admin: 09/04/25 21:22 Dose: 30 ml Bisacodyl (Bisacodyl 10 Mg Supp.Rect) 10 mg [place] DAILY PRN PRN Reason: Constipation Brexpiprazole (Brexpiprazole 1 Mg Tablet) 1 mg PO DAILY [facility] Last Admin: 09/05/25 08:48 Dose: 1 mg Enalapril Maleate (Enalapril Maleate 10 Mg Tablet) 10 mg PO DAILY [facility]; Protocol Last Admin: 09/05/25 08:49 Dose: 10 mg Ferrous Sulfate (Ferrous Sulfate 324 Mg Tablet.Dr) 324 mg PO DAILY [facility] Last Admin: 09/05/25 08:49 Dose: 324 mg Furosemide (Furosemide 20 Mg Tablet) 20 mg PO DAILY [facility]; Protocol Last Admin: 09/05/25 08:48 Dose: 20 mg Hydroxyzine HCl (Hydroxyzine Hcl 25 Mg Tablet) 25 mg PO Q6H PRN PRN Reason: mild anxiety Last Admin: 09/04/25 21:25 Dose: 25 mg Levothyroxine Sodium (Levothyroxine Sodium 50 Mcg Tablet) 50 mcg PO DAILY@0600 [facility] Last Admin: 09/05/25 06:30 Dose: 50 mcg Loperamide HCl (Loperamide Hcl 2 Mg Capsule) 2 mg PO Q6H PRN PRN Reason: Loose Stool Last Admin: 09/04/25 21:23 Dose: 2 mg Loratadine (Loratadine 10 Mg Tablet) 10 mg PO DAILY PRN PRN Reason: Allergic Symptoms Magnesium Hydroxide (Milk Of Magnesia 30 Ml Oral.Susp) 30 ml PO DAILY PRN PRN Reason: Constipation Nicotine (Nicotine 21 Mg Patch.Td24) 21 mg TRANSDERMA DAILY PRN PRN Reason: nicotine craving Olanzapine (Olanzapine 5 Mg Tablet) 5 mg PO BID PRN PRN Reason: Agitation Last Admin: 09/04/25 15:24 Dose: 5 mg Olanzapine (Olanzapine 5 Mg Tablet) 5 mg PO BEDTIME [facility] Last Admin: 09/04/25 20:29 Dose: 5 mg Olanzapine (Olanzapine 5 Mg Tablet) 5 mg PO DAILY [facility] Last Admin: 09/05/25 08:49 Dose: 5 mg Sumatriptan Succinate (Sumatriptan Succinate 25 Mg Tablet) 25 mg PO BID PRN PRN Reason: Headache Last Admin: 09/04/25 15:24 Dose: 25 mg Trazodone HCl (Trazodone Hcl 50 Mg Tablet) 50 mg PO BEDTIME MRX1 PRN PRN Reason: Insomnia Last Admin: 09/04/25 21:25 Dose: 50 mg Vitamin D (Cholecalciferol (Vitamin D3) 25 Mcg Tablet) 25 mcg PO DAILY [facility] Last Admin: 09/05/25 08:49 Dose: 25 mcg Allergies Allergies Allergy/AdvReac Type Severity Reaction Status Date / Time No Known Allergies Allergy Verified 08/30/25 21:24 Assessment & Plan Assessment & Plan (1) Major neurocognitive disorder due to another medical condition, with other behavioral or psychological disturbance: Status: Acute Code(s): F02.818 - Dementia in other diseases classified elsewhere, unspecified severity, with other behavioral disturbance Plan Mrs. Angel is a 80 year-old woman with hx of dementia who resides at [facility], apparently she had been presenting as more agitated and combative. No acute medical findings. She was seen by psych and started on rexulti and olanzapine. PLAN 09/01 continue tx. no aggression. 09/02 continue tx. 09/03: Continue current regimen and plans 09/04: Continue current regimen and plans 09/05: Continue current regimen and plans. Reason for continued inpatient stay Substantial Risk for: med/psych decompensation Time Spent With Patient Time: Total time managing care of this patient today ____ minutes.
[2025-09-05 20:00] VITALS: BP 138/72; PULSE 83; RESP 16; TEMP 36.7; O2SAT 93
[2025-09-05 23:21] LABS: Troponin-I High Sensitivity 3.6 ng/L (<3.5-17.0)
[2025-09-06 07:55] VITALS: BP 116/67; PULSE 80; RESP 18; TEMP 36.6; O2SAT 94
[2025-09-06] MEDS: Ferrous Sulfate 324 MG TABLET.DR PO (08:26)
--- NOTE | 2025-09-06 08:39 | P.PNPSI_ITS ---
Subjective Subjective Date of Service: 09/06/25 Reason For Visit: AMS Subjective Notes: Conditional Voluntary Healthcare Proxy: Yes Interim History: Pt had some difficulty sleeping last night but has been sleeping most night. Pt has been pleasant on approach. No aggression towards self or others. Review of Systems Review of Systems Edema Yes all other systems are reviewed and are negative and Unobtainable due to mental status Mental Status Exam Mental Status Exam Narrative: Appearance: wearing hospital gown, fair hygiene, in NAD Behavior: cooperative and friendly Psychomotor: no agitation or retardation noted Speech: mostly clear, normal rate/rhythm/volume, spontaneous TP: linear TC: complaining of headache, wanting to go home Mood: good Affect: congruent SI: denies HI: none VH/AH: no overt signs Delusions: confabulation, no overt delusional content. Insight/judgment: impaired x 2 Memory/cog: alert, oriented only to self. Diagnostics Vital Signs (24Hr): Vital Signs - 24 hr 09/05/25 08:48 09/05/25 08:49 09/05/25 20:00 Temperature 98.0 F Pulse Rate 83 Respiratory Rate 16 Blood Pressure 107/55 L 107/55 L 138/72 Pulse Oximetry 93 Oxygen Delivery Method Room Air BMI result Body Mass Index 26.1 Labs 08/31/25 07:19 Labs: Laboratory Results - last 48 hr 08/31/25 09/05/25 07:19 22:58 Troponin I High Sens 3.6 25-OH Vitamin D Total 33 25-Hydroxy Vitamin D2 <4 25-Hydroxy Vitamin D3 33 Medications Medications Current Medications Acetaminophen (Acetaminophen 325 Mg Tablet) 650 mg PO Q6H PRN PRN Reason: Headache/Pain, Scale 1-10 Last Admin: 09/06/25 01:15 Dose: 650 mg Al Hydroxide/Mg Hydroxide (Magnesium Hydrox/Alum Hydrox 30 Ml Oral.Susp) 30 ml PO Q6H PRN PRN Reason: Heartburn/Nausea Last Admin: 09/04/25 21:22 Dose: 30 ml Bisacodyl (Bisacodyl 10 Mg Supp.Rect) 10 mg [place] DAILY PRN PRN Reason: Constipation Brexpiprazole (Brexpiprazole 1 Mg Tablet) 1 mg PO DAILY [facility] Last Admin: 09/06/25 08:26 Dose: 1 mg Enalapril Maleate (Enalapril Maleate 10 Mg Tablet) 10 mg PO DAILY [facility]; Protocol Last Admin: 09/06/25 08:27 Dose: 10 mg Ferrous Sulfate (Ferrous Sulfate 324 Mg Tablet.Dr) 324 mg PO DAILY [facility] Last Admin: 09/06/25 08:26 Dose: 324 mg Furosemide (Furosemide 20 Mg Tablet) 20 mg PO DAILY [facility]; Protocol Last Admin: 09/06/25 08:26 Dose: 20 mg Hydroxyzine HCl (Hydroxyzine Hcl 25 Mg Tablet) 25 mg PO Q6H PRN PRN Reason: mild anxiety Last Admin: 09/05/25 21:20 Dose: 25 mg Levothyroxine Sodium (Levothyroxine Sodium 50 Mcg Tablet) 50 mcg PO DAILY@0600 [facility] Last Admin: 09/06/25 06:23 Dose: 50 mcg Loperamide HCl (Loperamide Hcl 2 Mg Capsule) 2 mg PO Q6H PRN PRN Reason: Loose Stool Last Admin: 09/04/25 21:23 Dose: 2 mg Loratadine (Loratadine 10 Mg Tablet) 10 mg PO DAILY PRN PRN Reason: Allergic Symptoms Magnesium Hydroxide (Milk Of Magnesia 30 Ml Oral.Susp) 30 ml PO DAILY PRN PRN Reason: Constipation Nicotine (Nicotine 21 Mg Patch.Td24) 21 mg TRANSDERMA DAILY PRN PRN Reason: nicotine craving Olanzapine (Olanzapine 5 Mg Tablet) 5 mg PO BID PRN PRN Reason: Agitation Last Admin: 09/06/25 01:14 Dose: 5 mg Olanzapine (Olanzapine 5 Mg Tablet) 5 mg PO BEDTIME [facility] Last Admin: 09/05/25 21:20 Dose: 5 mg Olanzapine (Olanzapine 5 Mg Tablet) 5 mg PO DAILY [facility] Last Admin: 09/06/25 08:27 Dose: 5 mg Sumatriptan Succinate (Sumatriptan Succinate 25 Mg Tablet) 25 mg PO BID PRN PRN Reason: Headache Last Admin: 09/05/25 21:20 Dose: 25 mg Trazodone HCl (Trazodone Hcl 50 Mg Tablet) 50 mg PO BEDTIME MRX1 PRN PRN Reason: Insomnia Last Admin: 09/06/25 01:15 Dose: 50 mg Vitamin D (Cholecalciferol (Vitamin D3) 25 Mcg Tablet) 25 mcg PO DAILY [facility] Last Admin: 09/06/25 08:27 Dose: 25 mcg Allergies Allergies Allergy/AdvReac Type Severity Reaction Status Date / Time No Known Allergies Allergy Verified 08/30/25 21:24 Assessment & Plan Assessment & Plan (1) Major neurocognitive disorder due to another medical condition, with other behavioral or psychological disturbance: Status: Acute Code(s): F02.818 - Dementia in other diseases classified elsewhere, unspecified severity, with other behavioral disturbance Plan Mrs. Angel is a 80 year-old woman with hx of dementia who resides at [place], apparently she had been presenting as more agitated and combative. No acute medical findings. She was seen by psych and started on rexulti and olanzapine. PLAN 09/06 stable. no aggression. Reason for continued inpatient stay Substantial Risk for: inability to function Time Spent With Patient Time: Total time managing care of this patient today ____ minutes.
[2025-09-06 20:00] VITALS: BP 113/60; PULSE 72; RESP 16; TEMP 36.3; O2SAT 95
[2025-09-07 08:00] VITALS: BP 109/61; PULSE 65; RESP 16; TEMP 36.7; O2SAT 97
[2025-09-07 08:02] VITALS: BP 109/61
[2025-09-07 08:03] VITALS: BP 109/61
[2025-09-07] MEDS: Ferrous Sulfate 324 MG TABLET.DR PO (08:03)
--- NOTE | 2025-09-07 09:24 | P.PNPSI_ITS ---
Subjective Subjective Date of Service: 09/07/25 Reason For Visit: AMS Subjective Notes: Conditional Voluntary Healthcare Proxy: Yes Interim History: Patient found ambulating in the hallway with her walker. She is pleasantly confused. She reports headache. She denies SI/HI/AH/VH. The patient is Polish-speaking only. 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 Medication Compliance: Yes Side effects from medications: No Attending Groups: Intermittent Review of Systems Acute medical concerns: No Mental Status Exam Mental Status Exam Narrative: Appearance: Casually dressed, adequate hygiene Behavior: Calm and cooperative throughout the interview. Eye contact is appropriate, and there are no signs of psychomotor agitation or retardation Speech: Normal volume and prosody Thought process: Logical and goal-directed Thought content: No self-harming thoughts Mood: Euthymic Affect: Mood-congruent SI:denies HI:denies VH/AH:none Delusions: None Insight/judgment: Impaired insight and judgment Memory/cog: Alert and oriented Diagnostics Vital Signs (24Hr): Vital Signs - 24 hr 09/06/25 20:00 09/07/25 08:02 09/07/25 08:03 Temperature 97.4 F Pulse Rate 72 Respiratory Rate 16 Blood Pressure 113/60 109/61 109/61 Pulse Oximetry 95 Oxygen Delivery Method Room Air BMI result Body Mass Index 26.1 Labs 08/31/25 07:19 Labs: Laboratory Results - last 48 hr 09/05/25 22:58 Troponin I High Sens 3.6 Medications Medications Current Medications Acetaminophen (Acetaminophen 325 Mg Tablet) 650 mg PO Q6H PRN PRN Reason: Headache/Pain, Scale 1-10 Last Admin: 09/06/25 01:15 Dose: 650 mg Al Hydroxide/Mg Hydroxide (Magnesium Hydrox/Alum Hydrox 30 Ml Oral.Susp) 30 ml PO Q6H PRN PRN Reason: Heartburn/Nausea Last Admin: 09/04/25 21:22 Dose: 30 ml Bisacodyl (Bisacodyl 10 Mg Supp.Rect) 10 mg [place] DAILY PRN PRN Reason: Constipation Brexpiprazole (Brexpiprazole 1 Mg Tablet) 1 mg PO DAILY [facility] Last Admin: 09/07/25 08:03 Dose: 1 mg Enalapril Maleate (Enalapril Maleate 10 Mg Tablet) 10 mg PO DAILY [facility]; Protocol Last Admin: 09/07/25 08:03 Dose: 10 mg Ferrous Sulfate (Ferrous Sulfate 324 Mg Tablet.) 324 mg PO DAILY [facility] Last Admin: 09/07/25 08:03 Dose: 324 mg Furosemide (Furosemide 20 Mg Tablet) 20 mg PO DAILY [facility]; Protocol Last Admin: 09/07/25 08:02 Dose: 20 mg Hydroxyzine HCl (Hydroxyzine Hcl 25 Mg Tablet) 25 mg PO Q6H PRN PRN Reason: mild anxiety Last Admin: 09/06/25 21:22 Dose: 25 mg Levothyroxine Sodium (Levothyroxine Sodium 50 Mcg Tablet) 50 mcg PO DAILY@0600 [facility] Last Admin: 09/07/25 06:26 Dose: 50 mcg Loperamide HCl (Loperamide Hcl 2 Mg Capsule) 2 mg PO Q6H PRN PRN Reason: Loose Stool Last Admin: 09/04/25 21:23 Dose: 2 mg Loratadine (Loratadine 10 Mg Tablet) 10 mg PO DAILY PRN PRN Reason: Allergic Symptoms Magnesium Hydroxide (Milk Of Magnesia 30 Ml Oral.Susp) 30 ml PO DAILY PRN PRN Reason: Constipation Nicotine (Nicotine 21 Mg Patch.Td24) 21 mg TRANSDERMA DAILY PRN PRN Reason: nicotine craving Olanzapine (Olanzapine 5 Mg Tablet) 5 mg PO BID PRN PRN Reason: Agitation Last Admin: 09/06/25 01:14 Dose: 5 mg Olanzapine (Olanzapine 5 Mg Tablet) 5 mg PO BEDTIME [facility] Last Admin: 09/06/25 21:22 Dose: 5 mg Olanzapine (Olanzapine 5 Mg Tablet) 5 mg PO DAILY [facility] Last Admin: 09/07/25 08:02 Dose: 5 mg Sumatriptan Succinate (Sumatriptan Succinate 25 Mg Tablet) 25 mg PO BID PRN PRN Reason: Headache Last Admin: 09/06/25 21:22 Dose: 25 mg Trazodone HCl (Trazodone Hcl 50 Mg Tablet) 50 mg PO BEDTIME MRX1 PRN PRN Reason: Insomnia Last Admin: 09/06/25 21:22 Dose: 50 mg Vitamin D (Cholecalciferol (Vitamin D3) 25 Mcg Tablet) 25 mcg PO DAILY [facility] Last Admin: 09/07/25 08:03 Dose: 25 mcg Allergies Allergies Allergy/AdvReac Type Severity Reaction Status Date / Time No Known Allergies Allergy Verified 08/30/25 21:24 Assessment & Plan Assessment & Plan (1) Major neurocognitive disorder due to another medical condition, with other behavioral or psychological disturbance: Status: Acute Code(s): F02.818 - Dementia in other diseases classified elsewhere, unspecified severity, with other behavioral disturbance Plan Mrs. Angel is a 80 year-old woman with hx of dementia who resides at [place], apparently she had been presenting as more agitated and combative. No acute medical findings. She was seen by psych and started on rexulti and olanzapine. PLAN 09/06 stable. no aggression. 09/07: Continue current treatment regimen. Patient educated on: therapeutic strategies Reason for continued inpatient stay Substantial Risk for: rapid decompensation Time Spent With Patient Time: Total time managing care of this patient today ____ minutes.
[2025-09-07 20:00] VITALS: BP 110/55; PULSE 56; RESP 16; TEMP 36.5; O2SAT 96
[2025-09-08 08:00] VITALS: BP 109/58; PULSE 62; RESP 17; TEMP 36.4; O2SAT 97
[2025-09-08 08:36] VITALS: BP 109/58
[2025-09-08] MEDS: Ferrous Sulfate 324 MG TABLET.DR PO (08:36)
[2025-09-08 08:37] VITALS: BP 109/58
--- NOTE | 2025-09-08 09:32 | PM.PSYDC ---
DS: Providers Provider Date of Service: 09/08/25 Date of admission: 08/30/25 21:09 Date of discharge: 09/08/25 Primary care physician: Unknown Physician Admitting clinician: Betrha Zacarias Attending physician on admission: Ollie Figueredo Consults: 08/30/25 21:27 Consult to Hospitalist Routine Comment: [place]ing [place] [facility] [facility] Reason For Exam: New external admit H+P Attending physician on discharge: Aditya Bernardo Discharging clinician: Sammy Cleaning DS: Diagnosis Discharge Diagnosis (1) Major neurocognitive disorder due to another medical condition, with other behavioral or psychological disturbance: Status: Acute DS: Medications Discharge Medications Home Medications: Home Medications ?Medication ?Instructions ?Recorded ?Confirmed bisacodyl 10 mg rectal suppository 10 mg CA DAILY PRN Congestion 08/30/25 08/30/25 brexpiprazole 1 mg tablet (Rexulti) 1 mg PO DAILY 08/30/25 08/30/25 cholecalciferol (vitamin D3) 25 25 mcg PO DAILY 08/30/25 08/30/25 mcg (1,000 unit) tablet (Vitamin D3) enalapril maleate 10 mg tablet 10 mg PO DAILY 08/30/25 08/30/25 ferrous sulfate 325 mg (65 mg 325 mg PO DAILY 08/30/25 08/30/25 iron) tablet (Iron (ferrous sulfate)) levothyroxine 50 mcg tablet 50 mcg PO DAILY 08/30/25 08/30/25 loratadine 10 mg tablet 10 mg PO DAILY PRN Allergic 08/30/25 08/30/25 Symptoms olanzapine 5 mg disintegrating 5 mg PO BEDTIME 08/30/25 08/30/25 tablet olanzapine 5 mg disintegrating 5 mg PO BID PRN Agitation 08/30/25 08/30/25 tablet olanzapine 5 mg disintegrating 5 mg PO DAILY 08/30/25 08/30/25 tablet olanzapine 5 mg tablet 5 mg PO BEDTIME 08/30/25 08/30/25 sumatriptan succinate 25 mg tablet 25 mg PO BID PRN Headache 08/30/25 08/30/25 trazodone 50 mg tablet 50 mg PO BID PRN Agitation 08/30/25 08/30/25 Mental Status Exam Mental Status Exam Narrative: Appearance: Casually dressed, adequate hygiene Behavior: Calm and cooperative throughout the interview. Eye contact is appropriate, and there are no signs of psychomotor agitation or retardation Speech: Normal volume and prosody Thought process: Logical and goal-directed Thought content: No self-harming thoughts Mood: Euthymic Affect: Mood-congruent SI:denies HI:denies VH/AH:none Delusions: None Insight/judgment: Impaired insight and judgment Memory/cog: Alert and oriented Data Data Completed and Pending Completed studies during hospitalization [Text1]: 08/31/25 09/05/25 07:19 22:58 Troponin I High Sens 3.6 25-OH Vitamin D Total 33 25-Hydroxy Vitamin D2 <4 25-Hydroxy Vitamin D3 33 DS: Summary Hospital Course Hospital Course: HPI Mrs. Angel is a 80 year-old woman with hx of dementia who resides at [facility], apparently she had been presenting as more agitated and combative. No acute medical findings. She was seen by psych and started on rexulti and olanzapine. Plan 09/01 continue tx. no aggression. 09/02 continue tx. 09/03: Continue current regimen and plans. 09/04: Continue current regimen and plans. 09/05: Continue current regimen and plans. 09/06 stable. no aggression. 09/07: Continue current treatment regimen. 09/08: Stable for discharge. Status at Discharge Functional status at discharge: uses cane/walker Overall status at discharge: patient is back to baseline Time Spent with Patient Time attestation: Total time managing care of this patient today ____ minutes. Time spent: Less than 30 minutes Discharge Plan Discharge Anticipated Discharge Date/Time: 09/08/25 11:00 Patient Disposition: Xfer SNF Discharge Diagnosis: Major neurocognitive disorder, hypertension Referrals: Physician,Unknown J [Primary Care Provider, Medical] - 1 Week Discharge Medications: New acetaminophen 325 mg Tablet 650 mg PO Q6H PRN (Reason: Headache/Pain, Scale 1-10) Qty: 0 0RF hydroxyzine HCl 25 mg Tablet 25 mg PO Q6H PRN (Reason: mild anxiety) Qty: 0 0RF furosemide 20 mg Tablet 20 mg PO DAILY Qty: 0 0RF Protocol: Hold for SBP< HOLD for SBP < : 90 Continued enalapril maleate 10 mg tablet 10 mg PO DAILY trazodone 50 mg tablet 50 mg PO BID PRN (Reason: Agitation) sumatriptan succinate 25 mg tablet 25 mg PO BID PRN (Reason: Headache) levothyroxine 50 mcg tablet 50 mcg PO DAILY bisacodyl 10 mg Suppository 10 mg CA DAILY PRN (Reason: Congestion) ferrous sulfate [Iron (ferrous sulfate)] 325 mg (65 mg iron) Tablet 325 mg PO DAILY olanzapine 5 mg Tablet 5 mg PO BEDTIME loratadine 10 mg Tablet 10 mg PO DAILY PRN (Reason: Allergic Symptoms) olanzapine 5 mg Tablet,Disintegrating 5 mg PO DAILY olanzapine 5 mg Tablet,Disintegrating 5 mg PO BID PRN (Reason: Agitation) cholecalciferol (vitamin D3) [Vitamin D3] 25 mcg (1,000 unit) Tablet 25 mcg PO DAILY Rexulti 1 mg Tablet 1 mg PO DAILY Discontinued olanzapine 5 mg Tablet,Disintegrating 5 mg PO BEDTIME Discharge Orders: Discharge Order (Routine); Ordered 09/08/25 Ordered By: Aditya Bernardo Diet: Advance to usual diet Activity on Discharge: Use cane or walker Stand Alone Forms: Patient Portal Discharge page, Community Support Print Language: Unable To Collect Care Plan Goals: Maintain mood and safe behaviors Take medications as prescribed Practice coping skills Continue with outpatient providers and reach out to them as needed Health Concerns: Mood stability and behaviors Plan of Treatment: Follow up with your PCP, psychiatric provider and other outpatient providers regarding above concerns Take medications as prescribed Assessment: Risk assessment at time of discharge:? Patient was interviewed prior to discharge and found to be fully oriented and without any SI or HI. Patient has improved insight and judgment and wants to continue treatment. Patient is not in imminent risk of harm to self or others and has a safety plan that includes presenting to the closest ER or calling 911 if feeling unsafe.? Patient has been observed closely by nursing and unit staff throughout admission; patient has not engaged in any behaviors that suggest dangerousness to self or others and has demonstrated appropriate behaviors and impulse control Discharge Date/Time: 09/08/25 11:08
[2025-09-08 10:11] VITALS: BMI 26.0
--- NOTE | 2025-09-08 11:14 | PC.NURSE ---
Patient was aware of discharge. Discharge instructions given to the pt. 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 Pt left the unit via stretcher at 11:08 to [facility]. N:N with Hanna ORTIZ at [facility].
== END 2025-09-08 11:08 | disposition skilled nursing facility (03) | DRG 884 ==
PROVIDERS: Nurse Practitioner Psychiatric/Mental Health; Psychiatry & Neurology Psychiatry; Admitting Provider Social Worker; Visit Provider Social Worker
DX: F03.911 Unspecified dementia, unspecified severity, with agitation (principal); E03.9 Hypothyroidism, unspecified; D50.9 Iron deficiency anemia, unspecified; Z66 Do not resuscitate; R19.7 Diarrhea, unspecified; Z23 Encounter for immunization; Z79.890 Hormone replacement therapy; Z79.899 Other long term (current) drug therapy
CPT/HCPCS: 36415; 80053; 80061; 82306; 82607; 82746; 83036; 84439; 84443; 84484; 90656; 93005

== ENCOUNTER → 2025-08-30 21:09 | Outpatient (BNV) | payer MEDICARE, MEDICAID, SELFPAY | PROVIDERS: Admitting Provider Social Worker; Visit Provider Social Worker | DX: F03.918 Unspecified dementia, unspecified severity, with other behavioral disturbance (principal) | CPT/HCPCS: 90792; 99231; 99232 ==

== ENCOUNTER → 2025-08-30 21:09 | Outpatient (BNV) | payer MEDICARE, MEDICAID, SELFPAY | PROVIDERS: Admitting Provider Social Worker; Visit Provider Nurse Practitioner Family | DX: I10 Essential (primary) hypertension (principal) | CPT/HCPCS: 99221 ==